=== PATIENT | female | born 1990 | race Caucasian/White ===

== ENCOUNTER 2017-10-22 22:09 | Emergency (ER) | payer OTHER ==
[~2017-10-22] VITALS: Ht 157.5 cm; Wt 90.7 kg
[~2017-10-22 22:09] MED LIST: NOHOMEMEDICATIONS; PERCOCET 5-3251 EACH PO; ZOFRAN ODT4 MG PO
[2017-10-23 00:44] LABS: HEMATOCRIT 39.2 % (37.0-47.0); HEMOGLOBIN 13.1 gm/dL (12.0-15.0); MCH 28.4 pg (26.0-34.0); MCHC 33.5 g/dL (28.0-37.0); MCV 84.9 fL (80.0-100.0); RBC 4.62 mil/uL (4.20-5.00); RDW 13.8 % (10.5-14.5); WBC 6.4 thou/uL (4.0-11.0)
[2017-10-23 00:46] LABS: CALCIUM 8.7 mg/dL (8.5-10.1); CREATININE 0.7 mg/dL (0.6-1.0); POTASSIUM 3.7 mmol/L (3.5-5.1)
[2017-10-23 00:52] LABS: ALBUMIN 3.5 g/dL (3.4-5.0); TOTAL BILIRUBIN 0.1 mg/dL (<0.1-1.0); TOTAL PROTEIN 7.1 g/dL (6.4-8.2)
[2017-10-23 01:38] LABS: URINE BILIRUBIN NEGATIVE (Negative); URINE BLOOD 3+ (Negative); URINE CLARITY CLEAR; URINE COLOR YELLOW; URINE GLUCOSE-RANDOM* NEGATIVE (Negative); URINE KETONES TRACE (Negative); URINE LEUKOCYTES-REFLEX NEGATIVE (Negative); URINE NITRITE-REFLEX NEGATIVE (Negative); URINE PROTEIN (DIPSTICK) NEGATIVE (Negative); URINE SPECIFIC GRAVITY 1.025 (1.005-1.035); URINE UROBILINOGEN 0.2 E.U./dl (0.2-1.0)
[2017-10-23 02:07] LABS: BACTERIA-REFLEX 1-9 Few /HPF (None Seen); CASTS None Seen /LPF (None Seen); CRYSTALS None Seen /LPF (None Seen); MUCUS 0-3 Light strn/LPF (None Seen); SQUAMOUS 0-3 Few /LPF (0-3); URINE RBC 3-10 Few /HPF (0-2); URINE WBC-REFLEX None Seen /HPF (0-5)
[2017-10-23 02:11] LABS: AMP/METHAMP Negative (Negative); BARBITURATES Negative (Negative); BENZODIAZEPINES Negative (Negative); COCAINE Negative (Negative); METHADONE Negative (Negative); OPIATES Negative (Negative); PCP Negative (Negative)
== END 2017-10-23 04:57 | disposition home or self-care (01) ==
LOC: ER 22:09
PROVIDERS: Emergency Medicine
DX: J06.9 Acute upper respiratory infection, unspecified (principal); R21 Rash and other nonspecific skin eruption; F17.210 Nicotine dependence, cigarettes, uncomplicated; E28.2 Polycystic ovarian syndrome

== ENCOUNTER 2020-04-26 12:58 | Emergency (ER) | payer OTHER ==
[~2020-04-26] VITALS: Ht 157.5 cm; Wt 108.9 kg
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
[2020-04-26 14:44] LABS: ABSOLUTE NEUTROPHILS 4.2 thou/uL (1.4-8.2); BASOPHILS 0.7 % (0.0-2.0); EOSINOPHILS 2.7 % (0.0-3.0); HEMATOCRIT 38.4 % (37.0-47.0); HEMOGLOBIN 13.4 gm/dL (12.0-15.0); LYMPHOCYTES 26.1 % (24.0-44.0); MCH 30.2 pg (26.0-34.0); MCHC 34.8 g/dL (28.0-37.0); MCV 86.8 fL (80.0-100.0); MONOCYTES 9.6 % (1.0-8.0); PLATELET COUNT 362 thou/uL (150-400); POLYS 60.9 % (36.0-66.0); RBC 4.43 mil/uL (4.20-5.00); RDW 13.8 % (10.5-14.5); WBC 6.9 thou/uL (4.0-11.0)
[2020-04-26 14:50] LABS: ANION GAP 7 mmol/L (7-16); BUN 9 mg/dL (7-18); CALCIUM 8.8 mg/dL (8.5-10.1); CHLORIDE 99 mmol/L (98-107); CO2 27 mmol/L (21-32); CREATININE 0.7 mg/dL (0.6-1.0); GLUCOSE 110 mg/dL (74-106); POTASSIUM 3.3 mmol/L (3.5-5.1); SODIUM 133 mmol/L (136-145)
[2020-04-26 14:56] LABS: ALBUMIN 3.5 g/dL (3.4-5.0); SALICYLATE 3.6 mg/dL (2.8-20.0); SGOT 19 U/L (15-37); SGPT 28 U/L (30-65); TOTAL BILIRUBIN 0.2 mg/dL (0.2-1.0); TOTAL PROTEIN 6.7 g/dL (6.4-8.2)
[2020-04-26 15:02] LABS: URINE BILIRUBIN NEGATIVE (Negative); URINE BLOOD NEGATIVE (Negative); URINE CLARITY CLEAR; URINE COLOR YELLOW; URINE GLUCOSE-RANDOM* NEGATIVE (Negative); URINE KETONES NEGATIVE (Negative); URINE LEUKOCYTES-REFLEX NEGATIVE (Negative); URINE NITRITE-REFLEX NEGATIVE (Negative); URINE PROTEIN (DIPSTICK) NEGATIVE (Negative); URINE SPECIFIC GRAVITY >= 1.030 (1.005-1.035)
[2020-04-26 15:14] LABS: AMP/METHAMP POSITIVE (Negative); BARBITURATES Negative (Negative); BENZODIAZEPINES Negative (Negative); COCAINE Negative (Negative); METHADONE Negative (Negative); OPIATES Negative (Negative); PCP Negative (Negative)
[2020-04-28 16:47] VITALS: BP 109/79
== END 2020-04-28 16:50 | disposition still patient (30) ==
LOC: ER 12:58
PROVIDERS: Physician Assistant
DX: F15.159 Other stimulant abuse with stimulant-induced psychotic disorder, unspecified (principal); S00.12XA Contusion of left eyelid and periocular area, initial encounter; F32.9 Major depressive disorder, single episode, unspecified; R45.851 Suicidal ideations; R45.850 Homicidal ideations; F17.210 Nicotine dependence, cigarettes, uncomplicated; Z88.8 Allergy status to other drugs, medicaments and biological substances; Y04.2XXA Assault by strike against or bumped into by another person, initial encounter; Y93.89 Activity, other specified; Y92.89 Other specified places as the place of occurrence of the external cause; Y99.8 Other external cause status

== ENCOUNTER 2021-05-03 07:26 | Emergency (ER) | payer OTHER ==
[~2021-05-03] VITALS: Ht 157.5 cm; Wt 83.9 kg
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
[2021-05-03 09:53] LABS: BASOPHILS 0.9 % (0.0-2.0); EOSINOPHILS 2.5 % (0.0-3.0); HEMATOCRIT 39.5 % (37.0-47.0); HEMOGLOBIN 13.3 gm/dL (12.0-15.0); LYMPHOCYTES 30.9 % (24.0-44.0); MCHC 33.7 g/dL (28.0-37.0); MONOCYTES 12.5 % (1.0-8.0); PLATELET COUNT 359 thou/uL (150-400); POLYS 53.2 % (36.0-66.0); RBC 4.29 mil/uL (4.20-5.00); RDW 12.7 % (10.5-14.5); WBC 5.6 thou/uL (4.0-11.0)
[2021-05-03 09:58] LABS: CALCIUM 8.3 mg/dL (8.5-10.1); CREATININE 0.8 mg/dL (0.6-1.0); POTASSIUM 3.6 mmol/L (3.5-5.1)
[2021-05-03 10:11] LABS: AMP/METHAMP POSITIVE (Negative); BARBITURATES Negative (Negative); BENZODIAZEPINES Negative (Negative); COCAINE POSITIVE (Negative); METHADONE Negative (Negative); OPIATES Negative (Negative); PCP Negative (Negative); URINE BILIRUBIN NEGATIVE (Negative); URINE BLOOD NEGATIVE (Negative); URINE CLARITY CLEAR; URINE COLOR YELLOW; URINE GLUCOSE-RANDOM* NEGATIVE (Negative); URINE KETONES NEGATIVE (Negative); URINE LEUKOCYTES-REFLEX NEGATIVE (Negative); URINE PROTEIN (DIPSTICK) NEGATIVE (Negative); URINE SPECIFIC GRAVITY >= 1.030 (1.005-1.035); URINE UROBILINOGEN 0.2 E.U./dl (0.2-1.0)
[2021-05-03 10:12] LABS: URINE NITRITE-REFLEX POSITIVE (Negative)
[2021-05-03 10:57] LABS: AMORPHOUS URATES Moderate /LPF (None Seen); CASTS None Seen /LPF (None Seen); SQUAMOUS >10 Many /LPF (0-3); URINE WBC-REFLEX 6-15 Few /HPF (0-5)
[2021-05-03 10:58] LABS: URINE RBC None Seen /HPF (NONE SEEN)
[2021-05-03 13:20] VITALS: BP 130/80
== END 2021-05-03 13:28 | disposition home or self-care (01) ==
LOC: ER 07:26
PROVIDERS: Emergency Medicine
DX: F41.9 Anxiety disorder, unspecified (principal); F17.210 Nicotine dependence, cigarettes, uncomplicated; Z88.6 Allergy status to analgesic agent